=== PATIENT | male | born 1935 | race African-American/Black ===

== ENCOUNTER 2018-10-12 15:51 | Emergency (ER) | payer MEDICARE, OTHER ==
[~2018-10-12] VITALS: Ht 180.3 cm; Wt 96.2 kg
[2018-10-12 16:11] VITALS: BP 176/91
--- NOTE | 2018-10-12 16:16 | NUR ---
PT TAKEN IN WHEELCHAIR TO ER BED 01
--- NOTE | 2018-10-12 17:09 | NUR ---
PATIENT PRESENTS TO ED WITH BROUGHT IN BY FAMILY C/O GENERAL WEAKNESS, UNABLE TO AMBULATE FATIGUE, MILD TREMORS DENIES N/V/D DENIES CHEST PAIN OR SOB AT THIS TIME---FULL CLEAR SPEECH DENIES INJURY--- DENIES N/V/D; SKIN IS PINK/WARM/DRY; ; LUNGS CLEAR BL; HR EVEN AND REGULAR; PT DENIES ANY FEVER, CP, SOB, AT THIS TIME; PATIENT STATES PAIN OF 0/10 AT THIS TIME; VSS; PATIENT POSITIONED FOR COMFORT; HOB ELEVATED; BEDRAILS UP X2; BED DOWN. ER MD MADE AWARE OF PT STATUS.
--- NOTE | 2018-10-12 17:10 | NUR ---
LAB ATTEMPTING TO COLLECT SAMPLE AT BEDSIDE ATTEMPTED IV , UNSUCCESSFUL ANOTHER RN WILL ATTEMPT
--- NOTE | 2018-10-12 17:14 | NUR ---
ATTEMPTED IV AT THIS TIME, WAS NOT ABLE TO ACHIEVE.
[2018-10-12 17:25] LABS: BASOPHILS % (AUTO) 0.7 % (0.0-2.0); EOSINOPHILS # (AUTO) 0.1 K/uL (0-0.4); EOSINOPHILS % (AUTO) 1.4 % (0.0-4.0); HEMOGLOBIN 14.7 g/dL (12.0-18.0); LYMPHOCYTES # (AUTO) 0.8 K/uL (2.0-11.5); LYMPHOCYTES % (AUTO) 14.3 % (20.5-51.1); MEAN CORPUSCULAR HEMOGLOBIN 30 pg (27-31); MEAN CORPUSCULAR HGB CONC 32 g/dL (33-37); MEAN CORPUSCULAR VOLUME 93.5 fL (80-94); MONOCYTES # (AUTO) 0.6 K/uL (0.8-1.0); MONOCYTES % (AUTO) 10.3 % (1.7-9.3); NEUTROPHILS % (AUTO) 73.3 % (42.2-75.2); PLATELET COUNT (AUTO) 101 K/uL (140-450); RED BLOOD CELL COUNT(AUTO) 4.92 MIL/uL (4.20-6.10); RED CELL DISTRIBUTION WIDTH 15.8 % (11.6-13.7); WHITE BLOOD COUNT (AUTO) 5.4 K/uL (4.8-10.8)
--- NOTE | 2018-10-12 17:33 | NUR ---
PATIENT BACK FROM CT.
--- NOTE | 2018-10-12 18:02 | NUR ---
PATIENT UNABLE TO RPOVIDE URINE AT THIS TIME.
[2018-10-12 18:03] LABS: ANION GAP 12.1 (8-16); CARBON DIOXIDE 27.3 mmol/L (21-32); CHLORIDE 106 mmol/L (98-107); CREATININE 1.9 mg/dL (0.7-1.3); GLUCOSE 85 mg/dL (74-106); POTASSIUM 4.4 mmol/L (3.5-5.1); SODIUM SERUM 141 mmol/L (136-145); UREA NITROGEN, BLOOD 23 mg/dL (7-18)
[2018-10-12 18:20] VITALS: BP 199/118
[2018-10-12 18:22] LABS: PROTHROMBIN TIME 9.9 secs (10.8-13.4)
--- NOTE | 2018-10-12 18:43 | NUR ---
DR. TORRES AT BEDSIDE SPEAKING TO PT. AND FAMILY, PATIENT STATED HE WANTS TO LEAVE AMA.
[2018-10-12 18:50] LABS: APPEARANCE,URINE CLEAR (CLEAR); BILIRUBIN,URINE NEGATIVE (NEGATIVE); BLOOD, URINE TRACE-I (NEGATIVE); COLOR,URINE YELLOW (YELLOW); LEUKOCYTE ESTERASE ,URINE NEGATIVE (NEGATIVE); NITRITE, URINE NEGATIVE (NEGATIVE); UGLUCOSE NEGATIVE (NEGATIVE)
--- NOTE | 2018-10-12 18:58 | NUR ---
Patient does not wish to proceed with medical care recommended by DR. TORRES. Patient given information related to possible complications, up to and including , which could occur as a result of leaving hospital at this time. Patient verbalizes understanding of risks involved leaving against medical advice. Patient has signed AMA form.
[2018-10-12 19:07] LABS: RBC,URINE 0-5 (RARE) /HPF (0-5); WBC,URINE 0-5 (RARE) /HPF (0-5)
== END 2018-10-12 18:58 | disposition left against medical advice (07) ==
LOC: MED 15:51
DX: I44.1 Atrioventricular block, second degree (principal); Z86.73 Personal history of transient ischemic attack (TIA), and cerebral infarction without residual deficits
CPT/HCPCS: 36415; 70450; 80048; 81001; 84484; 85025; 85610; 93005; 99284

== ENCOUNTER 2019-02-21 11:45 | Emergency (ER) | payer OTHER ==
[~2019-02-21] VITALS: Ht 177.8 cm; Wt 90.7 kg
[2019-02-21 11:58] VITALS: BP 217/86
[2019-02-21] MEDS ORDERED: NACL 0.9% 1,000 ML IV ONE (12:00)
--- NOTE | 2019-02-21 12:04 | NUR ---
PATIENT ASSISTED TO BED 4.
--- NOTE | 2019-02-21 12:04 | NUR ---
BIB GRANDSON. AAO X4, FULL CLEAR SPEECH C/O DIZZINESS SINCE LAST NIGHT. PT STATES THAT HE WAS DIZZY AND FELT GOING HIS HEAD GOING BACKWARDS AND FELL LAST NIGHT ON HIS BUTTOCKS. PT STATES LOWER BACK PAIN 5/10. PT DENIES N/V, SOB. PERRLA BRISK 3 MM, EQUAL LEONIDAS STRENGTH TO UPPER AND LOWER EXTREMITIES. PT PLACED ON FULL PRESTO LOG OPERATOR. HOB UP. BED SIDE RAILS UP X1. ON LOW BED POSITION, LOCKED. ER TO EVALUATE PT.
--- NOTE | 2019-02-21 12:05 | NUR ---
JAMES CONWAY MADE AWARE OF PT CONDITION.
--- NOTE | 2019-02-21 12:16 | NUR ---
XRAY AT BEDSIDE
--- NOTE | 2019-02-21 12:17 | NUR ---
LAB AT BEDSIDE
[2019-02-21 12:41] LABS: EOSINOPHILS # (AUTO) 0.2 K/uL (0-0.4); EOSINOPHILS % (AUTO) 3.4 % (0.0-4.0); HEMATOCRIT 43.7 % (36-52); HEMOGLOBIN 14.3 g/dL (12.0-18.0); LYMPHOCYTES # (AUTO) 2.1 K/uL (2.0-11.5); MEAN CORPUSCULAR HEMOGLOBIN 30 pg (27-31); MEAN CORPUSCULAR HGB CONC 33 g/dL (33-37); MONOCYTES # (AUTO) 0.5 K/uL (0.8-1.0); MONOCYTES % (AUTO) 9.2 % (1.7-9.3); NEUTROPHILS # (AUTO) 2.2 K/uL (1.8-7.7); NEUTROPHILS % (AUTO) 44.4 % (42.2-75.2); PLATELET COUNT (AUTO) 149 K/uL (140-450); RED BLOOD CELL COUNT(AUTO) 4.75 MIL/uL (4.20-6.10); RED CELL DISTRIBUTION WIDTH 14.2 % (11.6-13.7); WHITE BLOOD COUNT (AUTO) 5.1 K/uL (4.8-10.8)
--- NOTE | 2019-02-21 12:42 | NUR ---
ASSISTED PT STANDING UP WITH GRANDSON TO USE THE URINAL. PT TOLERATED WELL. PT DENIES DIZZINESS. CONVERSATING WITH GRANDSON APPROPRIATELY. WILL CONTINUE TO MONITOR.
--- NOTE | 2019-02-21 12:50 | NUR ---
URINE SPECIMEN OBTAINED. CALLED LAB FOR RELOCATION DIRECTOR.
[2019-02-21 13:07] LABS: PROTHROMBIN TIME 11.3 secs (10.8-13.4)
--- NOTE | 2019-02-21 13:10 | NUR ---
PT AAO X4. FULL CLEAR SPEECH. CONVERSATING WITH GRANDSON APPROPRIATELY. NO SIGNS AND SYMPTOMS OF DISTRESS NOTED. WILL CONTINUE TO MONITOR.
[2019-02-21 13:13] LABS: ALBUMIN 3.6 g/dL (3.4-5.0); ANION GAP 12.4 (8-16); ASPARTATE AMINOTRANSFERASE 20 U/L (15-37); CARBON DIOXIDE 26.5 mmol/L (21-32); CHLORIDE 108 mmol/L (98-107); CREATININE 1.9 mg/dL (0.7-1.3); GLUCOSE 101 mg/dL (74-106); LIPASE 189 U/L (73-393); POTASSIUM 3.9 mmol/L (3.5-5.1); SODIUM SERUM 143 mmol/L (136-145); TOTAL BILIRUBIN 0.7 mg/dL (0.0-1.0); UREA NITROGEN, BLOOD 25 mg/dL (7-18)
[2019-02-21 13:22] LABS: APPEARANCE,URINE CLEAR (CLEAR); BILIRUBIN,URINE NEGATIVE (NEGATIVE); BLOOD, URINE 1+ (NEGATIVE); COLOR,URINE YELLOW (YELLOW); LEUKOCYTE ESTERASE ,URINE NEGATIVE (NEGATIVE); NITRITE, URINE NEGATIVE (NEGATIVE); PH,URINE 6.5 (5.0-9.0); UGLUCOSE NEGATIVE (NEGATIVE)
[2019-02-21 13:24] LABS: CREATINE KINASE MB 1.3 ng/mL (0-3.6)
[2019-02-21 13:31] LABS: WBC,URINE 0-5 /HPF (0-5)
[2019-02-21] MEDS ORDERED: SIMV5TAB56 PO (14:08)
[2019-02-21] MEDS ORDERED: ATEN50TA8 PO (14:08)
--- NOTE | 2019-02-21 14:23 | NUR ---
PT ON TELE MONITOR, TAKEN TO CT VIA BED BY RN AND ECONOMIC HISTORY TEACHER
--- NOTE | 2019-02-21 14:38 | NUR ---
PT BACK TO ROOM VIA BED BY RN AND TALCER. PT PLACED BACK ON FULL CASING TIER.
--- NOTE | 2019-02-21 16:30 | NUR ---
DR PETERSEN AT BEDSIDE FOR PT EVALUATION.
[2019-02-21] MEDS ORDERED: ACETAMINOPHEN 325 MG TAB PO PRN (16:35)
[2019-02-21] MEDS ORDERED: MORPHINE SULFATE 2 MG/ML SYR IVP PRN (16:35)
[2019-02-21] MEDS ORDERED: ALBUTEROL 0.083% 2.5 MG/3 ML NEBU INH PRN (16:35)
[2019-02-21] MEDS ORDERED: ONDANSETRON 4 MG/2 ML VIAL IVP PRN (16:35)
--- NOTE | 2019-02-21 17:00 | NUR ---
PT WANTS TO LEAVE AMA. DR HERNÁNDEZ NOTIFIED.
--- NOTE | 2019-02-21 17:03 | NUR ---
DR HERNÁNDEZ IS CONVERSATING WITH PT WITH RISKS OF LEAVING AMA. PT VERBALIZED UNDERSTANDING.
--- NOTE | 2019-02-21 17:09 | NUR ---
PT DECIDED TO LEAVE AGAINST MEDICAL ADVICE. GRANDSON AT BEDSIDE.
--- NOTE | 2019-02-21 17:10 | NUR ---
Patient discharged with v/s stable. Written and verbal after care instructions given and explained. Patient verbalized understanding. Ambulatory with steady gait. All questions addressed prior to discharge. Advised to follow up with PMD.
[2019-02-21 17:15] VITALS: BP 190/70
== END 2019-02-21 17:09 | disposition left against medical advice (07) ==
LOC: MED 11:45 → MTU 16:02 → UNDOADMIN 16:02 → MED 17:09
DX: R00.1 Bradycardia, unspecified (principal); N28.9 Disorder of kidney and ureter, unspecified; Z79.899 Other long term (current) drug therapy
CPT/HCPCS: 36415; 70450; 71045; 80053; 81001; 82550; 82553; 82948; 83605; 83690; 83735; 84484; 85025; 85610; 85730; 86886; 86900; 86901; 87040; 93005; 96360; 99291; 99292; J7030; Q0092

== ENCOUNTER 2022-12-10 11:28 | Observation (INO) | payer OTHER ==
[~2022-12-10] VITALS: Ht 180.3 cm; Wt 88.5 kg
[2022-12-10] MEDS: NACL 0.9% 1,000 ML IV SCH ×2 (02:21→18:23)
[~2022-12-10 11:28] MED LIST: ATEN50TA8 PO; SIMV5TAB56 PO
--- NOTE | 2022-12-10 11:30 | NUR ---
PATIENT BIBA TO BED 9.
[2022-12-10 11:36] VITALS: BP 143/61
--- NOTE | 2022-12-10 11:53 | NUR ---
X-RAY AT BEDSIDE.
--- NOTE | 2022-12-10 12:00 | NUR ---
87/M EMMETT FROM [facility] HE CALLED 911 WITH C/O EPIGASTRIC PAIN X2 HOURS PRIOR TO ARRIVAL, STATES PAIN BEGAN SHORTLY AFTER EATING. PATIENT DENIES CP, N/V/D, STATES HE "ATTEMPTED TO MAKE HIMSELF VOMIT" BUT COULD NOT. DENIES TAKING MEDS FOR SYMPTOMS. UPON ARRIVAL PATIENT PLACED IN GOWN ON BEDSIDE IN HOME AIDE, DR. ANDERSON AWARE OF PATIENT STATUS.
[2022-12-10 12:32] LABS: BASOPHILS # (AUTO) 0.1 K/uL (0.00-0.22); BASOPHILS % (AUTO) 0.8 % (0.0-2.0); EOSINOPHILS # (AUTO) 0.2 K/uL (0-0.4); EOSINOPHILS % (AUTO) 2.4 % (0.0-4.0); HEMATOCRIT 38.2 % (36-52); HEMOGLOBIN 12.6 g/dL (12.0-18.0); LYMPHOCYTES # (AUTO) 3.7 K/uL (2.0-11.5); LYMPHOCYTES % (AUTO) 36.1 % (20.5-51.1); MEAN CORPUSCULAR HEMOGLOBIN 30 pg (27-31); MEAN CORPUSCULAR HGB CONC 33 g/dL (33-37); MEAN CORPUSCULAR VOLUME 90.5 fL (80-94); MONOCYTES # (AUTO) 0.6 K/uL (0.8-1.0); MONOCYTES % (AUTO) 6.2 % (1.7-9.3); NEUTROPHILS # (AUTO) 5.6 K/uL (1.8-7.7); NEUTROPHILS % (AUTO) 54.5 % (42.2-75.2); PLATELET COUNT (AUTO) 223 K/uL (140-450); RED BLOOD CELL COUNT(AUTO) 4.22 MIL/uL (4.20-6.10); RED CELL DISTRIBUTION WIDTH 15.5 % (11.6-13.7); WHITE BLOOD COUNT (AUTO) 10.2 K/uL (4.8-10.8)
[2022-12-10 13:05] LABS: ALBUMIN 3.8 g/dL (3.4-5.0); ASPARTATE AMINOTRANSFERASE 13 U/L (15-37); CARBON DIOXIDE 23.9 mmol/L (21-32); CHLORIDE 106 mmol/L (98-107); CREATININE 3.1 mg/dL (0.6-1.3); GLUCOSE 225 mg/dL (74-106); SODIUM SERUM 142 mmol/L (136-145); TOTAL BILIRUBIN 0.4 mg/dL (0.0-1.0); UREA NITROGEN, BLOOD 45 mg/dL (7-18)
[2022-12-10 13:08] LABS: LIPASE 190 U/L (73-393)
[2022-12-10] MEDS ORDERED: MAG SULF 2000 MG/WATER PREMIX 50 ML IV ONE (13:25)
[2022-12-10] MEDS ORDERED: POTASSIUM CHLORIDE 20% 40 MEQ/15 ML UDC PO ONE (13:25)
[2022-12-10 13:26] LABS: POTASSIUM 2.9 mmol/L (3.5-5.1)
[2022-12-10] MEDS ORDERED: NACL 0.9% 1,000 ML IV ONE (13:30)
--- NOTE | 2022-12-10 14:28 | NUR ---
UPDATED ISABEL, RESPONSIBLE LIBERTARIAN OF PATIENTS CONDITION.
--- NOTE | 2022-12-10 15:20 | NUR ---
DR. BUSH, ADMITTING DOCTOR, EVALUATING PATIENT AT BEDSIDE.
[2022-12-10] MEDS ORDERED: ONDANSETRON 4 MG/2 ML VIAL IVP PRN (15:25)
[2022-12-10] MEDS ORDERED: MORPHINE SULFATE 2 MG/ML SYR IVP PRN (15:25)
[2022-12-10] MEDS ORDERED: LORazepam 2 MG/ML VIAL IVP PRN (15:25)
[2022-12-10] MEDS ORDERED: ACETAMINOPHEN 325 MG TAB PO PRN (15:25)
--- NOTE | 2022-12-10 15:27 | NUR ---
IRAM SWAB COLLECTED AND HANDED TO DETECTIVE HOMICIDE SQUAD MONA
--- NOTE | 2022-12-10 15:45 | NUR ---
PATIENT PROVIDED WITH BLANKETS FOR COMFORT, GIVEN URINAL BEDSIDE.
--- NOTE | 2022-12-10 16:14 | NUR ---
Patient will be admitted to care of DR. BUSH. Admited to Med/Surg. Will go to room 111A. Belongings list completed. Report to PADILLA.
[2022-12-10 16:15] VITALS: BP 153/76
--- NOTE | 2022-12-10 16:15 | NUR ---
ADMITTED FROM ER VIA GURNEY. AWAKE, ALERT, AND ORIENTED X3. SPEECH CLEAR. NO C/O PAIN. N SOB, NOTED. SKIN WARM. DRY, AND INTACT. EDEMA ON BLE NOTED. EXPLAINED DIAGNOSIS, PLAN OF CARE, NPO DIET, PAIN MANAGEMENT TEACHING, USE OF CALL LIGHT/BED/TV/BATHROOM. VERBALIZED UNDERSTANDING. FALL PRECAUTION APPLIED. CALL LIGHT WITHIN REACH.
--- NOTE | 2022-12-10 19:27 | NUR ---
REPORT GIVEN TO NEGRITO FLORES. IVF INFUSING WELL. IN STABLE CONDITION.
--- NOTE | 2022-12-10 20:49 | NUR ---
REMINDS PT HE IS NPO - PT VERBALIZES UNDERSTANDING - CALL LIGHT / WITHIN REACH . URINAL. WILL CONT. TO MONITOR
--- NOTE | 2022-12-10 20:51 | NUR ---
REQUESTING SOMETHING TO DRINK , I OFFER HER CRANBERRY JUICE - SHE AGREE , I TOLD HER I WILL GET CRANBERRY JUICE AND I WILL COMA BACK - O2 SAT 100 %
[2022-12-11] VITALS: BP 140/80
--- NOTE | 2022-12-11 00:04 | NUR ---
PT'S DAUGHTER MARYAN SANTORO CALL TO KNOW IF HER DAD IS OK AT THIS TIME , I'M TELLING TO HER PT IS SLEEPING AT THIS TIME , AND DENIES ANY PAIN SINCE I RECEIVED PT FROM AM NURSE . MARYAN SAID OK HER SISTER ISABEL WILL THE ONE WELL CONTROL INSTRUCTOR , WHEN I'M ABOUT TO GET THE ISABEL'S CONTACT NUMBER MARYAN SAID IT IS ALREADY ON THE FILE . - WILL RECHECK IT .
--- NOTE | 2022-12-11 05:00 | NUR ---
PT ASKING FOR WATER , I REMINDING HIM HE STILL ON NPO . PT'S VERBALIZES UNDERSTANDING , CALL LIGHT WITHIN REACH .
[2022-12-11 06:32] LABS: BASOPHILS % (AUTO) 0.4 % (0.0-2.0); EOSINOPHILS # (AUTO) 0.1 K/uL (0-0.4); EOSINOPHILS % (AUTO) 0.5 % (0.0-4.0); HEMATOCRIT 39.9 % (36-52); HEMOGLOBIN 13.1 g/dL (12.0-18.0); LYMPHOCYTES # (AUTO) 1.1 K/uL (2.0-11.5); LYMPHOCYTES % (AUTO) 11.8 % (20.5-51.1); MEAN CORPUSCULAR HEMOGLOBIN 30 pg (27-31); MEAN CORPUSCULAR HGB CONC 33 g/dL (33-37); MEAN CORPUSCULAR VOLUME 90.5 fL (80-94); MONOCYTES # (AUTO) 0.7 K/uL (0.8-1.0); MONOCYTES % (AUTO) 7.3 % (1.7-9.3); NEUTROPHILS # (AUTO) 7.6 K/uL (1.8-7.7); PLATELET COUNT (AUTO) 222 K/uL (140-450); RED CELL DISTRIBUTION WIDTH 15.4 % (11.6-13.7); WHITE BLOOD COUNT (AUTO) 9.5 K/uL (4.8-10.8)
[2022-12-11] MEDS: NACL 0.9% 1,000 ML IV SCH (07:40)
--- NOTE | 2022-12-11 07:40 | NUR ---
ASSUMED CONTINUITY OF CARE. INITIAL ASSESSMENT DONE. KEEP COMFORTABLE ON BED. FALL PRECAUTION APPLIED. CALL LIGHT WITHIN REACH.
--- NOTE | 2022-12-11 07:45 | NUR ---
ENDORSED PT FOR CONT. OF CARE NO N/V , NO ABDL PAIN FOR THE WHOLE SHIFT . MAINTAINED NPO
[2022-12-11 08:00] VITALS: BP 153/99
[2022-12-11 08:14] LABS: ALBUMIN 3.6 g/dL (3.4-5.0); ANION GAP 15.7 (8-16); ASPARTATE AMINOTRANSFERASE 23 U/L (15-37); CARBON DIOXIDE 23.1 mmol/L (21-32); CHLORIDE 110 mmol/L (98-107); CREATININE 2.6 mg/dL (0.6-1.3); GLUCOSE 115 mg/dL (74-106); MAGNESIUM 2.6 mg/dL (1.8-2.4); POTASSIUM 3.8 mmol/L (3.5-5.1); SODIUM SERUM 145 mmol/L (136-145); TOTAL BILIRUBIN 0.7 mg/dL (0.0-1.0); UREA NITROGEN, BLOOD 39 mg/dL (7-18)
--- NOTE | 2022-12-11 09:34 | NUR ---
PATIENT HAS BEEN SCREENED AND CATEGORIZED MODERATE NUTRITION RISK. PATIENT WILL BE SEEN WITHIN 3-5 DAYS OF ADMISSION. REVIEWED BY QUYEN PETERSEN RD
--- NOTE | 2022-12-11 11:38 | NUR ---
BANQUET SET UP PERSON -MINOO CAME AND SPOKE TO PT. AT BEDSIDE.
--- NOTE | 2022-12-11 12:45 | NUR ---
DR. BUSH CAME AND SPOKE TO PT. AT BEDSIDE.
[2022-12-11] MEDS ORDERED: CARV3.122 PO (13:30)
--- NOTE | 2022-12-11 14:04 | NUR ---
CALLED PT. MICHA -ISABEL AT AND INFORMED PT. D/C ORDER.
--- NOTE | 2022-12-11 14:45 | NUR ---
D/C HOME VIA WHEELCHAIR WITH PT. DAUGHTER ISABEL'S TRANSPORT. IN STABLE CONDITION. INFORMED CHARGE NURSE LUANNE FLORES.
== END 2022-12-11 14:45 | disposition home or self-care (01) ==
LOC: MED 11:28 → MTU 15:29
PROVIDERS: ADMIT Hospitalist; ATTEND Hospitalist
DX: E87.5 Hyperkalemia (principal); Z20.822 Contact with and (suspected) exposure to COVID-19; N17.9 Acute kidney failure, unspecified; E86.0 Dehydration; E78.5 Hyperlipidemia, unspecified; E87.6 Hypokalemia; I49.3 Ventricular premature depolarization; I11.0 Hypertensive heart disease with heart failure; I50.9 Heart failure, unspecified; K57.30 Diverticulosis of large intestine without perforation or abscess without bleeding; N26.1 Atrophy of kidney (terminal); Z79.899 Other long term (current) drug therapy; Z86.73 Personal history of transient ischemic attack (TIA), and cerebral infarction without residual deficits
CPT/HCPCS: 36415; 71045; 74176; 80053; 83690; 83735; 83880; 84484; 85025; 87081; 87426; 96361; 96365; 96366; 96375; 99285; G0378; J2270; J2405; J3475; Q0092